=== PATIENT | female | born 1955 | race Caucasian/White ===

== ENCOUNTER → 2018-06-15 09:22 | Outpatient (CLI) | payer BC ==
[2014-03-17 08:48] VITALS: BMI 37.4
[~2018-06-15 09:22] MED LIST: HYDROCODON-ACE1 EAC7 PO; IBUPROFEN200 MG PO; PRILOSEC20 MG PO; [UNRECOGNIZED DRUG - REMARK] OR
[2018-06-15 10:46] LABS: ALBUMIN 3.4 g/dL (3.4-5.0); BILIRUBIN - DIRECT 0.32 mg/dL (0.00-0.30); BILIRUBIN - INDIRECT 0.6 mg/dL (0.00-1.00); BILIRUBIN - TOTAL 0.92 mg/dL (0.2-1.3); PROTEIN - SERUM 7.9 g/dL (6.4-8.2)
[2018-06-16 11:18] LABS: HEPATITIS C ANTIBODY <0.1 (0.0-0.9)
== END | disposition home or self-care (01) ==
LOC: D.US 09:22
PROVIDERS: Internal Medicine Gastroenterology
DX: R12 Heartburn (principal); R13.10 Dysphagia, unspecified; R79.89 Other specified abnormal findings of blood chemistry

== ENCOUNTER → 2018-06-22 09:56 | Outpatient (CLI) | payer BC ==
[2014-03-17 08:48] VITALS: BMI 37.4
[~2018-06-22 09:56] MED LIST changes: +CARAFATE1 G PO; +LIPITOR10 MG PO; +PEPCID AC20 MG; +PROBIOTIC BLEN1 EACH PO; +ZIAC 10-6.25 MG1 TAB PO
[2018-06-22 11:15] LABS: APTT 33.4 SECONDS (22.8-39.4); BASOPHILS 0.4 % (0-2); EOSINOPHILS 2.9 % (0-7); HEMOGLOBIN 14.5 g/dL (12-16); INR 1.24 (0.85-1.17); LYMPHOCYTES 24.1 % (15-50); MCH 32.6 pg (26.0-34.0); MCHC 35.4 g/dL (31.0-37.0); MCV 92.1 fL (80.0-100.0); MONOCYTES 8.1 % (2-11); NEUTROPHILS 64.5 % (40-80); PROTIME 15.2 SECONDS (11.6-15.0); RBC 4.45 10x6/uL (4.00-5.40); RDW 14.1 % (11.5-14.5); WBC 5.4 10x3/uL (4.8-10.8)
[2018-06-22 11:16] LABS: PLATELET COUNT 205 10x3/uL (130-400)
[2018-06-22 11:19] LABS: % SATURATION 27 % (15-55); IRON 77 ug/dl (35-150); TOTAL IRON BIND CAPACITY 281 ug/dl (260-445); UNSAT IRON BIND CAPACITY 204 ug/dl (150-375)
[2018-06-22 11:52] LABS: ANION GAP 10.1 mmol/L (8-16); CALCIUM 8.9 mg/dL (8.5-10.1); CARBON DIOXIDE 28.7 mmol/L (21.0-32.0); CHOL - HDL RATIO 2.6 ratio (2.3-4.1); CREATININE - SERUM 1.1 mg/dL (0.6-1.3); LDL-HDL RATIO 1.1 ratio (1.5-3.5); POTASSIUM - SERUM 3.8 mmol/L (3.5-5.1)
[2018-06-23 06:15] LABS: ALPHA FETOPROTEIN -(TUMOR MRK) 7.8 ng/mL (0.0-8.3)
[2018-06-23 09:16] LABS: HAPTOGLOBIN 145 mg/dL (34-200)
[2018-06-23 10:22] LABS: ANA REFLEX - DIRECT Negative (Negative)
[2018-06-30 08:36] LABS: SMOOTH MUSCLE ABS (ACTIN) 32 High
[2018-07-08 08:23] VITALS: BMI 44.9
== END | disposition home or self-care (01) ==
LOC: D.LAB 08:15
PROVIDERS: Internal Medicine Gastroenterology
DX: R79.89 Other specified abnormal findings of blood chemistry (principal)

== ENCOUNTER 2018-07-08 06:14 | Outpatient (CLI) | payer BC ==
[~2018-07-08] VITALS: Ht 149.9 cm; Wt 100.9 kg
[~2018-07-08 06:14] MED LIST changes: -CARAFATE1 G PO; -LIPITOR10 MG PO; -PEPCID AC20 MG; -PROBIOTIC BLEN1 EACH PO; -ZIAC 10-6.25 MG1 TAB PO
[2018-07-08 06:46] LABS: ANION GAP 12.4 mmol/L (8-16); CALCIUM 9.4 mg/dL (8.5-10.1); CARBON DIOXIDE 26.6 mmol/L (21.0-32.0); CREATININE - SERUM 1.1 mg/dL (0.6-1.3)
[2018-07-08 06:53] LABS: BASOPHILS 0.3 % (0-2); HEMATOCRIT 40.3 % (36.0-48.0); HEMOGLOBIN 14.1 g/dL (12-16); IMMATURE GRANULOCYTES 0.3 % (0-5); LYMPHOCYTES 31.6 % (15-50); MCH 32.6 pg (26.0-34.0); MCV 93.1 fL (80.0-100.0); MEAN PLATELET VOLUME 10.6 fL (7.4-10.4); MONOCYTES 8.5 % (2-11); NEUTROPHILS 55.3 % (40-80); PLATELET COUNT 243 10x3/uL (130-400); RBC 4.33 10x6/uL (4.00-5.40); RDW 13.8 % (11.5-14.5); WBC 5.8 10x3/uL (4.8-10.8)
[2018-07-08 06:57] LABS: INR 1.1 (0.85-1.17); PROTIME 13.8 SECONDS (11.6-15.0)
[2018-07-08] MEDS ORDERED: ZIAC 10-6.25 MG1 TAB PO (08:14)
[2018-07-08] MEDS ORDERED: LIPITOR10 MG PO (08:15)
[2018-07-08] MEDS ORDERED: CARAFATE1 G PO (08:15)
[2018-07-08] MEDS ORDERED: PEPCID AC20 MG (08:16)
[2018-07-08] MEDS ORDERED: PROBIOTIC BLEN1 EACH PO (08:17)
[2018-07-08 08:23] VITALS: BP 101/75; Ht 149.9 cm; Wt 100.9 kg
== END 2018-07-08 13:43 | disposition home or self-care (01) ==
LOC: D.SP 06:14 → D.CT 09:00 → D.SP 09:00
PROVIDERS: Specialist
DX: K75.81 Nonalcoholic steatohepatitis (NASH) (principal); K74.0 Hepatic fibrosis; Z01.812 Encounter for preprocedural laboratory examination

== ENCOUNTER → 2018-12-15 10:33 | Outpatient (CLI) | payer BC ==
[2018-07-08 08:23] VITALS: BMI 44.9
[~2018-12-15 10:33] MED LIST changes: +CARAFATE1 G PO; +LIPITOR10 MG PO; +PEPCID AC20 MG; +PROBIOTIC BLEN1 EACH PO; +ZIAC 10-6.25 MG1 TAB PO
[2018-12-15 11:36] LABS: ALBUMIN 3.2 g/dL (3.4-5.0); BILIRUBIN - DIRECT 0.12 mg/dL (0.00-0.30); BILIRUBIN - INDIRECT 0.61 mg/dL (0.00-1.00); BILIRUBIN - TOTAL 0.73 mg/dL (0.2-1.3); PROTEIN - SERUM 7.5 g/dL (6.4-8.2)
== END | disposition home or self-care (01) ==
LOC: D.US 12-14 10:00
PROVIDERS: ATTEND Internal Medicine Gastroenterology
DX: K76.0 Fatty (change of) liver, not elsewhere classified (principal)

== ENCOUNTER → 2018-12-21 08:57 | Outpatient (CLI) | payer BC ==
[2018-07-08 08:23] VITALS: BMI 44.9
== END | disposition home or self-care (01) ==
LOC: D.US 08:57
PROVIDERS: ATTEND Internal Medicine Gastroenterology
DX: K76.0 Fatty (change of) liver, not elsewhere classified (principal)

== ENCOUNTER 2019-06-14 11:50 | Day surgery (SDC) | payer BC ==
[~2019-06-14] VITALS: Ht 149.9 cm; Wt 102.7 kg
[2019-06-14 12:49] LABS: HEMATOCRIT 41.4 % (36.0-48.0); HEMOGLOBIN 14.9 g/dL (12-16); MEAN PLATELET VOLUME 10.6 fL (7.4-10.4); RBC 4.65 10x6/uL (4.00-5.40); RDW 13.5 % (11.5-14.5); WBC 5.2 10x3/uL (4.8-10.8)
[2019-06-14 13:10] LABS: ANION GAP 14.3 mmol/L (8-16); CALCIUM 9.3 mg/dL (8.5-10.1); POTASSIUM - SERUM 4.3 mmol/L (3.5-5.1)
[2019-06-14 14:39] VITALS: BP 129/80; Ht 149.9 cm; Wt 102.7 kg
--- NOTE | 2019-06-14 16:05 | NUR ---
INSTRUCTIONS GIVEN TO PT AND FAMILY. IV FLUIDS RUNNING DENIES CHEST PAIN OR SOB.
--- NOTE | 2019-06-23 16:44 | OP ---
PATIENT NAME: CHARLES GREWAL MEDICAL RECORD: [id number] :59 LOCATION:ERIC ADMISSION DATE: SURGEON: BUFFY PUGA DO DATE OF OPERATION: 06/14/2019 PROCEDURE: EGD with biopsies. INDICATIONS FOR PROCEDURE: Dysphagia and abnormal barium swallow with concern for a mass in the mid esophagus. SCOPE: Olympus video gastroscope. MEDICATIONS: Propofol 100 mg IV per anesthesia. ESTIMATED BLOOD LOSS: Minimal. COMPLICATIONS: None. FINDINGS: Informed consent was given. The patient was made comfortable with the above medication. After reaching an adequate level of sedation by slow IV push, the patient was placed on her left side. The endoscope was advanced under direct visualization through the mouth to the second portion of the duodenum with ease. The entire esophagus appeared normal. There were no rings, strictures, mass or other abnormalities encountered. At the GE junction, there were minor changes consistent with LA class A reflux-induced esophagitis. Because the patient has had past biopsies, which showed intestinal metaplasia, biopsies were taken at the squamocolumnar junction, although this did not necessarily look like Morales's esophagus. The endoscope was advanced beyond the GE junction into the stomach and retroflexed to view the cardia, where a very small sliding hiatal hernia was visualized. The fundus and body of the stomach appeared normal as did the antrum and prepyloric region. Cold forceps biopsies were taken from the antrum to submit for histopathology and to rule out the presence of H. pylori, which the patient has tested positive for in the past. The endoscope was advanced beyond the pylorus in the duodenum, which appeared normal to the second portion. The endoscope was then withdrawn from the patient. The patient tolerated the procedure well and there were no complications. IMPRESSION: 1. LA class A reflux-induced esophagitis. 2. Small sliding hiatal hernia. 3. Otherwise, normal upper endoscopy with no evidence for a mass in the mid esophagus as suggested by the barium esophagram within the past few weeks. PLAN AND RECOMMENDATIONS: 1. Discharge home when recovery parameters are met. 2. Follow up biopsy specimen results. 3. GERD diet and reflux precautions. 4. Continue current medications. 5. We will discuss a manometry study with the patient in order if she believes she can tolerate the testing. 6. Further recommendations to follow manometry testing. TRANSINT:[id number] Voice Confirmation ID: [id number] DOCUMENT ID: [id number] OPERATIVE REPORT [id number] CHARLES GREWAL NATHAN A DO at 1644 CC: [id number] DICTATION DATE: 06/14/19 1529 SYSTEM SUPPORT ANALYST: 06/15/[address] [facility] 06/14/19 [place] [id number] [place] [id number]
== END 2019-06-14 16:50 | disposition home or self-care (01) ==
LOC: D.OPS 11:50
PROVIDERS: Anesthesiology; ATTEND Internal Medicine Gastroenterology
DX: K21.0 Gastro-esophageal reflux disease with esophagitis (principal); R13.10 Dysphagia, unspecified; K44.9 Diaphragmatic hernia without obstruction or gangrene

== ENCOUNTER → 2019-06-23 08:41 | Outpatient (CLI) | payer BC ==
[2019-06-14 14:39] VITALS: BMI 45.7
[2019-06-23 09:35] LABS: ALBUMIN 3.5 g/dL (3.4-5.0); BILIRUBIN - DIRECT 0.18 mg/dL (0.00-0.30); BILIRUBIN - INDIRECT 0.55 mg/dL (0.00-1.00); BILIRUBIN - TOTAL 0.73 mg/dL (0.2-1.3)
== END | disposition home or self-care (01) ==
LOC: D.US 08:41
PROVIDERS: ATTEND Internal Medicine Gastroenterology
DX: K76.0 Fatty (change of) liver, not elsewhere classified (principal)

== ENCOUNTER → 2020-04-25 10:10 | Outpatient (CLI) | payer BC ==
[2019-06-14 14:39] VITALS: BMI 45.7
[2020-04-25 11:02] LABS: ALBUMIN 3.5 g/dL (3.4-5.0); BILIRUBIN - DIRECT 0.25 mg/dL (0.00-0.30); BILIRUBIN - INDIRECT 0.62 mg/dL (0.00-1.00); BILIRUBIN - TOTAL 0.87 mg/dL (0.2-1.3); PROTEIN - SERUM 7.7 g/dL (6.4-8.2)
== END | disposition home or self-care (01) ==
LOC: D.US 10:10
PROVIDERS: ATTEND Internal Medicine Gastroenterology
DX: K76.0 Fatty (change of) liver, not elsewhere classified (principal)

== ENCOUNTER 2020-06-26 07:57 | Day surgery (SDC) | payer BC, OTHER ==
[~2020-06-26] VITALS: Ht 149.9 cm; Wt 101.4 kg
--- NOTE | ~2020-06-26 | OP ---
PATIENT NAME: CHARLES GREWAL MEDICAL RECORD: [id number] :59 LOCATION:D.OPS ADMISSION DATE: SURGEON: BUFFY PUGA DO DATE OF OPERATION: 06/26/2020 DATE OF PROCEDURE: 06/26/2020. DICTATING PHYSICIAN: Buffy Puga DO PROCEDURE: Colonoscopy with polypectomies. INDICATIONS FOR PROCEDURE: History of colon polyps and diverticulosis. The patient's last colonoscopy was on 07/20/2018. SCOPE: Olympus video pediatric colonoscope. MEDICATIONS: Propofol 290 mg IV per anesthesia. WITHDRAWAL TIME: 17 minutes. ESTIMATED BLOOD LOSS: Minimal. COMPLICATIONS: None. FINDINGS: Informed consent was given. The patient was made comfortable with the above medication. After reaching an adequate level of sedation by slow IV push, the patient was placed on her left side. A digital rectal examination was performed and was normal. The endoscope was then advanced under direct visualization through the rectum to the cecum. The appendiceal orifice and ileocecal valve were identified. There were 2 polyps visualized in the cecum. One was a benign appearing sessile polyp, which measured approximately 2-3 mm in diameter. The second was a benign appearing sessile polyp, which measured approximately 4-5 mm in diameter. The larger polyp was removed using a hot snare and the smaller polyp was removed using hot forceps. In the ascending colon, there were two separate benign-appearing sessile polyps hidden behind folds which were only seen upon retroflexion. They were both removed using hot snare. The larger of the 2 measured approximately 5-6 mm in diameter and the smaller polyp measured approximately 4-5 mm in diameter. There was a benign appearing sessile polyp located in the transverse colon which measured approximately 5 mm in diameter, which was removed using hot snare. In the sigmoid colon, there was a benign appearing sessile polyp, which measured approximately 4 mm in diameter, which was removed using a hot snare. There was evidence of moderate diverticulosis involving the descending and sigmoid colon. Retroflexion was performed in the rectum with visualization of a normal appearing rectal wall. The endoscope was withdrawn from the patient. The patient tolerated the procedure well and there were no complications. IMPRESSION: 1. Moderate diverticulosis of the descending and sigmoid colon. 2. Multiple polyps as described above, removed using a combination of a hot snare and hot forceps. PLAN AND RECOMMENDATIONS: 1. Discharge home when recovery parameters are met. 2. Follow up biopsy specimen results. OPERATIVE REPORT [id number] CHARLES GREWAL 3. High fiber diet. 4. Continue current medications. 5. Recall colonoscopy in 3 years. TRANSINT:[id number] Voice Confirmation ID: [id number] DOCUMENT ID: [id number] VIVIENBUFFY Antoinette LI CC: [id number] DICTATION DATE: 06/26/201004 EMERGENCY TECHNICIAN: 06/26/202046 [facility] 06/26/20 [place] [id number] [place] [id number]
[2020-06-26 08:18] LABS: HEMATOCRIT 42.1 % (36.0-48.0); HEMOGLOBIN 14.2 g/dL (12-16); MCH 31.8 pg (26.0-34.0); MCHC 33.7 g/dL (31.0-37.0); MCV 94.2 fL (80.0-100.0); MEAN PLATELET VOLUME 10.7 fL (7.4-10.4); RBC 4.47 10x6/uL (4.00-5.40); RDW 12.7 % (11.5-14.5); WBC 6.2 10x3/uL (4.8-10.8)
[2020-06-26 08:30] LABS: ANION GAP 9.9 mmol/L (8-16); CALCIUM 9.6 mg/dL (8.5-10.1); CARBON DIOXIDE 27.1 mmol/L (21.0-32.0); CREATININE - SERUM 1.1 mg/dL (0.6-1.3)
[2020-06-26] MEDS ORDERED: GLUCOPHAGE500 MG PO (08:37)
[2020-06-26 08:39] VITALS: Ht 149.9 cm; Wt 101.4 kg
--- NOTE | 2020-06-26 10:48 | NUR ---
DISCHARGE INSTRUCTIONS REVIEWED WITH PATIENT AND SPOUSE. DISCHARGED HOME VIA WHEELCHAIR TO PRIVATE VEHICLE WITH SPOUSE
== END 2020-06-26 10:48 | disposition home or self-care (01) ==
LOC: D.OPS 07:57
PROVIDERS: Anesthesiology; ATTEND Internal Medicine Gastroenterology
DX: Z86.010 Personal history of colon polyps (principal); K57.30 Diverticulosis of large intestine without perforation or abscess without bleeding; K63.5 Polyp of colon; K76.0 Fatty (change of) liver, not elsewhere classified